=== PATIENT | male | born 1940 | race Caucasian/White ===

== ENCOUNTER 2021-01-21 10:09 | Inpatient (IN) | payer OTHER, BC ==
[2021-01-21] MEDS ORDERED: RAPID SEQUENCE INTUBATION KIT NR ONE (10:49)
[2021-01-21 11:04] LABS: BASO % 0.5 % (0-2.0); EOS % 0.2 % (0-4.5); HEMATOCRIT 37.5 % (35.4-49); HEMOGLOBIN 12.2 GM/dL (11.7-16.9); MCH 27.1 pg (25.7-33.7); MCHC 32.7 g/dl (32.0-35.9); MEAN CELL VOLUME 83.1 fl (80-96); MEAN PLT VOLUME 8.2 fl (7.5-11.1); MONO % 7.9 % (3.8-10.2); NEUT % 84.4 % (42.8-82.8); PLATELET COUNT 168 10^3/uL (134-434); RBC 4.51 M/mm3 (4.00-5.60); RDW 15.9 % (11.9-15.9); WHITE BLOOD COUNT 6.4 K/mm3 (4.0-10.0)
[2021-01-21 11:09] LABS: EPI CELLS 11 /uL (0-25.1); HYALINE CASTS 2 /uL (0-3.1); URINE APPEARANCE CLOUDY; URINE BACTERIA 4 /uL (0-1359); URINE BILIRUBIN NEGATIVE (NEGATIVE); URINE COLOR ORANGE; URINE GLUCOSE (UA) NEGATIVE (NEGATIVE); URINE KETONE 2+ (NEGATIVE); URINE LEUK ESTERASE NEGATIVE (NEGATIVE); URINE NITRITE NEGATIVE (NEGATIVE); URINE PROTEIN 1+ (NEGATIVE); URINE RBC 5670 /uL (0-23.9); URINE WBC 11 /uL (0-25.8)
[2021-01-21 11:11] LABS: INR 1.15 (0.83-1.09); PROTHROMBIN TIME (PATIENT) 13.9 SEC (9.7-13.0)
[2021-01-21 11:13] LABS: ACTIVATED PTT 30.3 SECONDS (25.2-36.5)
[2021-01-21 11:23] LABS: CHLORIDE 102 mmol/L (98-107); SODIUM 136 mmol/L (136-145)
[2021-01-21 11:26] LABS: CALCIUM 8.1 mg/dL (8.5-10.1)
[2021-01-21 11:27] LABS: ALBUMIN 3.1 g/dl (3.4-5.0); ANION GAP 11 MMOL/L (8-16); BLOOD UREA NITROGEN 10.7 mg/dL (7-18); CO2 23 mmol/L (21-32); GLUCOSE,RANDOM 143 mg/dL (74-106)
[2021-01-21 11:29] LABS: SGPT/ALT 22 U/L (13-61); TRIGLYCERIDES 68 mg/dL (0-150)
[2021-01-21 11:30] LABS: CHOLESTEROL 152 mg/dL (50-200); CREATININE 0.9 mg/dL (0.55-1.3); SGOT/AST 15 U/L (15-37)
[2021-01-21 11:31] LABS: BILIRUBIN,TOTAL 0.6 mg/dL (0.2-1); LDL CHOLESTEROL (ONLY SJRH) 81 mg/dL (5-100); TOT PROT 6.7 g/dl (6.4-8.2)
[2021-01-21 11:32] LABS: ALK PHOS 87 U/L (45-117); HDL CHOLESTEROL 60 mg/dL (40-60)
[2021-01-21 11:56] VITALS: BMI 23.1
[2021-01-21] MEDS ORDERED: PANTOPRAZOLE SODIUM 40 MG VIAL IVPUSH ONE (13:26)
[2021-01-21] MEDS ORDERED: PANTOPRAZOLE SODIUM 40 MG VIAL ONE (13:33)
[2021-01-21] MEDS: DEXTROSE 5%-WATER - 1,000 ML IV SCH (18:35)
[2021-01-22] MEDS: DEXTROSE 5%-WATER - 1,000 ML IV SCH (06:06)
[2021-01-22] MEDS: MORPHINE SULFATE 2 MG/ML VIAL IVPUSH PRN ×2 (12:06→22:42)
[2021-01-23] MEDS: MORPHINE SULFATE 2 MG/ML VIAL IVPUSH PRN ×3 (05:55→18:50)
[2021-01-23] MEDS: ACETAMINOPHEN 1000 MG/100 ML VIAL (NON FORMULARY) IVPB PRN (06:22)
[2021-01-23] MEDS: DEXTROSE 5%-WATER - 1,000 ML IV SCH (14:01)
[2021-01-23] MEDS ORDERED: DEXTROSE 5%-0.45% SALINE 1,000 ML IV SCH (19:00)
[2021-01-23 19:20] VITALS: PULSE 91
[2021-01-23 23:27] VITALS: BP 130/80
[2021-01-24] MEDS: ACETAMINOPHEN 1000 MG/100 ML VIAL (NON FORMULARY) IVPB PRN (00:02)
[2021-01-24 00:04] VITALS: TEMP 100.3
== END 2021-01-24 04:27 | disposition expired | DRG 64 ==
LOC: JER 10:09 → JERBED 12:19 → J7W 14:15
PROVIDERS: ADMIT Internal Medicine; ATTEND Internal Medicine
DX: I62.9 Nontraumatic intracranial hemorrhage, unspecified (principal); G93.6 Cerebral edema; G81.91 Hemiplegia, unspecified affecting right dominant side; N40.0 Benign prostatic hyperplasia without lower urinary tract symptoms; I10 Essential (primary) hypertension; R41.82 Altered mental status, unspecified; K66.8 Other specified disorders of peritoneum; R04.0 Epistaxis; I05.8 Other rheumatic mitral valve diseases; R29.810 Facial weakness; Z95.2 Presence of prosthetic heart valve
CPT/HCPCS: 36415; 70450-TC; 71045-TC-FY; 80053; 80061; 81003; 82550; 83721; 84484; 85025; 85610; 85730; 86850; 86900; 86901; 87086; 93005; 93010; 99285-25; C9803; J0131; U0003; U0005